=== PATIENT | female | born 1995 | race Caucasian/White ===

== ENCOUNTER 2017-11-01 15:26 | Emergency (ER) | payer OTHER ==
[2017-11-01 15:33] VITALS: BP 116/69
[2017-11-01 16:09] LABS: HCG Qualitative,Urine Negative (Negative)
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
--- NOTE | 2017-11-01 22:41 | XRay Report ---
FINAL REPORT PROCEDURE: XR SPINE CERVICAL 2-3V TECHNIQUE: Cervical spine, three views HISTORY: bilateral trapezius tenderness COMPARISON: No prior studies are available for comparison. FINDINGS: The vertebral body heights and alignment are maintained. The prevertebral soft tissues are within normal limits in thickness. The odontoid process is intact. IMPRESSION: No acute fracture or subluxation is seen
== END 2017-11-01 23:00 | disposition home or self-care (01) ==
LOC: ED 15:26
DX: M54.2 Cervicalgia (principal); M25.562 Pain in left knee; G43.909 Migraine, unspecified, not intractable, without status migrainosus; V49.09XA Driver injured in collision with other motor vehicles in nontraffic accident, initial encounter; Y93.89 Activity, other specified; Y99.8 Other external cause status; Y92.488 Other paved roadways as the place of occurrence of the external cause
CPT/HCPCS: 72040; 81025

== ENCOUNTER 2018-12-10 10:38 | Emergency (ER) | payer OTHER ==
[2018-12-10 10:46] VITALS: BP 98/59
[2018-12-10 11:44] LABS: Basophils # (Auto) 0.1 K/mm3 (0.0-0.1); Basophils % (Auto) 1.5 % (0.0-1.8); Eosinophils % (Auto) 0.6 % (0.0-4.3); Lymphocytes # (Auto) 1.7 K/mm3 (1.2-5.4); Lymphocytes % (Auto) 34.4 % (13.4-35.0); Mean Corpuscular HGB Conc 29 % (30-34); Monocytes # (Auto) 0.7 K/mm3 (0.0-0.8); Monocytes % (Auto) 13.5 % (0.0-7.3); Platelet Count 493 K/mm3 (140-440); Red Blood Count 4.63 M/mm3 (3.65-5.03)
[2018-12-10 11:47] LABS: Hematocrit 28.2 % (30.3-42.9); Hemoglobin 8.2 gm/dl (10.1-14.3); Mean Corpuscular Volume 61 fl (79-97); Red Cell Distribution Width 21.2 % (13.2-15.2)
[2018-12-10] MEDS ORDERED: REGLAN IV ONE (11:51)
[2018-12-10] MEDS ORDERED: BENADRYL IV ONE (11:51)
[2018-12-10] MEDS ORDERED: NACL 0.9% 1000 ML 1,000 ML IV ONE (11:51)
[2018-12-10] MEDS ORDERED: TORADOL IV ONE (11:51)
[2018-12-10 12:00] LABS: Alanine Aminotransferase 32 units/L (7-56); Albumin 4.3 g/dL (3.9-5); BUN/Creatinine Ratio 13; Blood Urea Nitrogen 5 mg/dL (7-17); Hemolysis Index 1
[2018-12-10 12:03] LABS: Bilirubin,Direct < 0.2 mg/dL (0-0.2)
--- NOTE | 2018-12-10 12:29 | Emergency Department Report ---
ED General Adult HPI - General Chief complaint: Extremity Injury, Lower Stated complaint: MIGRAINE/BOTH LEGS SWOLLEN Time Seen by Provider: 12/10/18 11:11 Source: patient Mode of arrival: Ambulatory Limitations: No Limitations - History of Present Illness Initial comments: This is a 23-year-old female nontoxic, well nourished in appearance, no acute signs of distress presents to the ED with c/o of acute on chronic headache. Patient also staetd has bilatearl ankle swelling. Denies any injuries. Stated has been walking a lot. Patient describes headache as diffuse with level of 3 out of 10. Patient denies thunderclap headache. Patient denies any radiation of pain. Patient denies any head trauma. Patient denies any visual changes. Patient denies worse headache. Patient stated that darkness makes headache better and bright lights make the headache worse. Patient denies any numbness, tingling, fever, chills, nausea, vomiting, chest pain, shortness of breath, stiff neck. Patient denies facial drooping or one sided weakness. Patient de nies any radiation of pain. Patient denies any allergies. Past medical history includes migraine headaches. -: days(s) (1) Radiation: non-radiation Severity scale (0 -10): 8 Quality: aching Consistency: constant Improves with: none Worsens with: none Associated Symptoms: headaches, other (bilateral ankle swelling). denies: confusion, chest pain, cough, diaphoresis, fever/chills, loss of appetite, malaise, nausea/vomiting, rash, seizure, shortness of breath, syncope, weakness - Related Data Previous Rx's Medication Instructions Recorded Last Taken Type medroxyPROGESTERone ACETATE 10 mg PO QDAY #5 tablet 02/28/14 05/15/14 Rx [Provera] Butalb/Acetamin/Caff 50-325-40 1 each PO Q4H PRN #10 tablet 05/16/14 Unknown Rx [Fioricet] Butalb/Acetaminophen/Caffeine 1 cap PO Q8HR PRN #21 cap 02/03/15 Unknown Rx [Fioricet 50-300-40 mg CAP] Ondansetron [Zofran Odt] 4 mg PO TID #6 tab.rapdis 02/03/15 Unknown Rx Cyclobenzaprine HCl [Flexeril 5 MG 5 mg PO TID PRN #15 tab 11/01/17 Unknown Rx TAB] Ibuprofen [Motrin 800 MG tab] 800 mg PO Q8HR PRN #15 tablet 11/01/17 Unknown Rx Butalb/Acetaminophen/Caffeine 1 cap PO Q8HR PRN #12 cap 12/10/18 Unknown Rx [Fioricet 50-300-40 mg CAP] Allergies Allergy/AdvReac Type Severity Reaction Status Date / Time No Known Allergies Allergy Unverified 08/26/13 11:58 ED Review of Systems ROS: Stated complaint: MIGRAINE/BOTH LEGS SWOLLEN Other details as noted in HPI Constitutional: denies: chills, fever Eyes: denies: eye pain, eye discharge, vision change ENT: denies: ear pain, throat pain Respiratory: denies: cough, shortness of breath, wheezing Cardiovascular: denies: chest pain, palpitations Endocrine: no symptoms reported Gastrointestinal: denies: abdominal pain, nausea, vomiting, diarrhea Genitourinary: denies: urgency, dysuria, discharge Musculoskeletal: denies: back pain, joint swelling, arthralgia Skin: denies: rash, lesions Neurological: headache. denies: weakness, paresthesias Psychiatric: denies: anxiety, depression Hematological/Lymphatic: denies: easy bleeding, easy bruising ED Past Medical Hx - Past Medical History Previous Medical History?: Yes Hx Headaches / Migraines: Yes - Surgical History Past Surgical History?: No - Social History Smoking Status: Never Smoker Substance Use Type: None - Medications Home Medications: Home Medications Medication Instructions Recorded Confirmed Last Taken Type medroxyPROGESTERone ACETATE 10 mg PO QDAY #5 tablet 02/28/14 05/16/14 05/15/14 Rx [Provera] Butalb/Acetamin/Caff 50-325-40 1 each PO Q4H PRN #10 tablet 05/16/14 Unknown Rx [Fioricet] Butalb/Acetaminophen/Caffeine 1 cap PO Q8HR PRN #21 cap 02/03/15 Unknown Rx [Fioricet 50-300-40 mg CAP] Ondansetron [Zofran Odt] 4 mg PO TID #6 tab.rapdis 02/03/15 Unknown Rx Cyclobenzaprine HCl [Flexeril 5 MG 5 mg PO TID PRN #15 tab 11/01/17 Unknown Rx TAB] Ibuprofen [Motrin 800 MG tab] 800 mg PO Q8HR PRN #15 tablet 11/01/17 Unknown Rx Butalb/Acetaminophen/Caffeine 1 cap PO Q8HR PRN #12 cap 12/10/18 Unknown Rx [Fioricet 50-300-40 mg CAP] ED Physical Exam - General Limitations: No Limitations General appearance: alert, in no apparent distress - Head Head exam: Present: atraumatic, normocephalic - Eye Eye exam: Present: normal appearance, PERRL, EOMI - Neck Neck exam: Present: normal inspection, full ROM. Absent: tenderness, meningismus, lymphadenopathy - Respiratory Respiratory exam: Present: normal lung sounds bilaterally. Absent: respiratory distress, wheezes, rales, rhonchi, stridor, chest wall tenderness, accessory muscle use, decreased breath sounds, prolonged expiratory - Cardiovascular Cardiovascular Exam: Present: regular rate, normal rhythm, normal heart sounds. Absent: bradycardia, tachycardia, irregular rhythm, systolic murmur, diastolic murmur, rubs, gallop - Extremities Exam Extremities exam: Present: normal inspection, full ROM, normal capillary refill. Absent: tenderness, joint swelling, calf tenderness - Expanded Lower Extremity Exam Left Hip exam: Present: normal inspection (bilateral exam), full ROM (bilateral exam). Absent: tenderness, swelling Upper Leg exam: Present: normal inspection (bilateral exam), full ROM (bilateral exam). Absent: tenderness, swelling Knee exam: Present: normal inspection (bilateral exam), full ROM (bilateral exam). Absent: tenderness, swelling Lower Leg exam: Present: normal inspection (bilateral exam), full ROM (bilateral exam). Absent: tenderness, swelling, abrasion, laceration, ecchymosis, deformity, crepidus, dislocation, erythema, palpable cord, Curt's sign Ankle exam: Present: normal inspection (bilateral exam), full ROM (bilateral exam), swelling. Absent: tenderness, abrasion, laceration, ecchymosis, deformity, crepidus, dislocation, erythema, anterior draw sign Foot/Toe exam: Present: normal inspection (bilateral exam), full ROM (bilateral exam). Absent: tenderness, swelling Neuro vascular tendon exam: Present: no vascular compromise (bilateral exam) Gait: Positive: observed and normal (bilateral exam) - Back Exam Back exam: Present: normal inspection, full ROM. Absent: tenderness, CVA tenderness (R), CVA tenderness (L), muscle spasm, paraspinal tenderness, vert ebral tenderness, rash noted - Neurological Exam Neurological exam: Present: alert, oriented X3, normal gait - Expanded Neurological Exam Expanded Patient oriented to: Present: person, place, time Cranial nerves: EOM's Intact: Normal, Facial Sensation: Normal Cerebellar function: Finger to Nose: Normal Motor strength exam: RUE: 5, LUE: 5, RLE: 5, LLE: 5 Best Eye Response ([place]): (4) open spontaneously Best Motor Response ([place]): (6) obeys commands Best Verbal Response ([place]): (5) oriented [place] Total: 15 ED Course Vital Signs 12/10/18 10:44 Temperature 97.8 F Pulse Rate 88 Respiratory 18 Rate Blood Pressure 98/59 O2 Sat by Pulse 100 Oximetry - Reevaluation(s) Reevaluation #1: 12/10/18 12:29 Patient is speaking in full sentences with no signs of distress noted. ED Medical Decision Making - Lab Data Result diagrams: 12/10/18 11:27 12/10/18 11:27 - Medical Decision Making This is a 23-year-old female that presents with headache and bilateral ankle swelling. Patient is stable and was examined by me. Patient is neurologically stable. There is no stiff neck or neck pain. Vital signs are stable. Patient is afebrile. Labs are unremarkable. Patient received Benadryl, Reglan, Toradol, and 1 L of normal saline which the patient stated that headache has subsided and resolved. Patient was instructed not to operate any machinery after discharged due to drowsiness of Benadryl. Patient stated that a family member will drive patient home. Patient is discharged with Fioricet. Patient was referred to Follow-up with a primary care/neurologist doctor in 3-5 days or if symptoms worsen and continue return to emergency room as soon as possible. At time of discharge, the patient does not seem toxic or ill in appearance. No acute signs of distress noted. Patient agrees to discharge treatment plan of care. No further questions noted by the patient. Critical care attestation.: If time is entered above; I have spent that time in minutes in the direct care of this critically ill patient, excluding procedure time. ED Disposition Clinical Impression: Swelling of both ankles Headache Qualifiers: Headache type: unspecified Headache chronicity pattern: episodic headache Intractability: not intractable Qualified Code(s): R51 - Headache Disposition: DC-01 TO HOME OR SELFCARE Is pt being admited?: No Does the pt Need Aspirin: No Condition: Stable Instructions: Acute Headache (ED), Butalbital/Aspirin/Caffeine (By mouth) Additional Instructions: Follow-up with your primary care doctor in 3-5 days or if symptoms worsen such as bladder or bowel stability, chest pain, short of breath, numbness or tingling sensation in extremities, headache, dizziness, visual changes, nausea vomiting, or abdominal pain, return back to emergency room as was possible. Elevate your feet throughout the day to decrease swelling to your ankles. Prescriptions: Butalb/Acetaminophen/Caffeine [Fioricet 50-300-40 mg CAP] 1 cap PO Q8HR PRN #12 cap PRN Reason: Headache Referrals: PRIMARY CARE, [Referring] - 3-5 Days MARIE MUELLER MD [Staff Physician] - 3-5 Days [facility] [Outside] - 3-5 Days [facility] [Outside] - 3-5 Days Forms: Work/School Release Form(ED)
[2018-12-10 12:59] LABS: Bilirubin,Urine NEG (Negative); Blood,Urine NEG (Negative); Color,Urine Straw (Yellow); Mucus,Urine FEW /HPF; Protein,Urine <15 mg/dL mg/dL (Negative); Urobilinogen,Urine < 2.0 mg/dL (<2.0); WBC,Urine < 1.0 /HPF (0.0-6.0)
== END 2018-12-10 14:19 | disposition home or self-care (01) ==
LOC: ED 10:38
DX: G43.909 Migraine, unspecified, not intractable, without status migrainosus (principal); R22.43 Localized swelling, mass and lump, lower limb, bilateral; Z79.899 Other long term (current) drug therapy
CPT/HCPCS: 36415; 80048; 80076; 81001; 83880; 84703; 85025; 96374; 96375; 99283; J1200; J1885; J2765; J7030

== ENCOUNTER 2019-04-02 15:56 | Emergency (ER) | payer SELFPAY ==
--- NOTE | 2019-04-02 16:53 | Event Note ---
ED Screening Note ED Screening Note: stats she has a migraine states she has HAs frequently states she has a frontal SCHWARZ pt states she also has had vaginal bleeding for three weeks states she usually has heavy cycles states she has it regularly where she has her cycle for extended periods states she has been evaluated previously and had a normal US states was previously on control to help with her bleeding, is not on it anymore because she didnot have a "refill" no PMHx no allergies to meds This initial assessment/diagnostic orders/clinical plan/treatment(s) is/are subject to change based on patients health status, clinical progression and re- assessment by fellow clinical providers in the ED. Further treatment and workup at subsequent clinical providers discretion. Patient/guardian urged not to elope from the ED as their condition may be serious if not clinically assessed and managed. Initial orders include: labs
[2019-04-02 17:55] LABS: Basophils # (Auto) 0.1 K/mm3 (0.0-0.1); Basophils % (Auto) 0.8 % (0.0-1.8); Eosinophils % (Auto) 0.2 % (0.0-4.3); Lymphocytes # (Auto) 2.6 K/mm3 (1.2-5.4); Lymphocytes % (Auto) 34.1 % (13.4-35.0); Mean Corpuscular HGB Conc 28 % (30-34); Monocytes # (Auto) 0.8 K/mm3 (0.0-0.8); Monocytes % (Auto) 10.1 % (0.0-7.3); Platelet Count 670 K/mm3 (140-440); Red Blood Count 3.79 M/mm3 (3.65-5.03)
[2019-04-02 17:59] LABS: Hematocrit 22.4 % (30.3-42.9); Hemoglobin 6.4 gm/dl (10.1-14.3); Mean Corpuscular Volume 59 fl (79-97); Red Cell Distribution Width 24.5 % (13.2-15.2)
[2019-04-02 18:11] LABS: BUN/Creatinine Ratio 15; Blood Urea Nitrogen 6 mg/dL (7-17); Hemolysis Index 4
[2019-04-02] MEDS ORDERED: diphenhydrAMINE 25 MG CAP PO ONE (19:55)
[2019-04-02] MEDS ORDERED: SODIUM CHLORIDE 0.9% 1000 ML 1,000 ML IV ONE (19:55)
[2019-04-02] MEDS ORDERED: ACETAMINOPHEN 500 MG TAB PO ONE (19:55)
[2019-04-02] MEDS ORDERED: METOCLOPRAMIDE 10 MG TAB PO ONE (19:55)
[2019-04-02 20:46] LABS: INR 0.98 (0.87-1.13)
[2019-04-02 20:47] LABS: Partial Thromboplastin Time 25.5 Sec. (24.2-36.6)
--- NOTE | 2019-04-02 21:02 | Ultrasound Report ---
ULTRASOUND PELVIS INDICATION: Vaginal bleeding. TECHNIQUE: Transabdominal. Duplex Color Doppler used: Yes. COMPARISON: Pelvic ultrasound from 11/02/2013. FINDINGS: Uterus: Present. Size: 6.7 x 3.4 x 3.4 cm. Endometrial complex: Thickened measuring 1.35 cm. Mass lesions: None. Additional findings: None. Right Ovary: Size: 3.7 x 2.1 x 1.7 cm Blood flow: Normal. Cyst or mass: None. Left Ovary: Size: 4.0 x 2.2 x 2.3 cm Blood flow: Normal. Cyst or mass: None. Urinary Bladder: Normal. Free Fluid: None. Additional Findings: None. IMPRESSION: Nonspecific endometrial thickening without an additional significant sonographic abnormality of the p crystal. Signer Name: Severino Meléndez MD Signed: 04/02/2019 8:58 PM Workstation Name: [id number]
[2019-04-02 22:46] VITALS: BP 111/76
--- NOTE | 2019-04-02 22:48 | Emergency Department Report ---
ED General Adult HPI - General Chief complaint: Headache Stated complaint: HEADACHE/MIGRANE Time Seen by Provider: 04/02/19 16:50 Source: patient Mode of arrival: Ambulatory Limitations: No Limitations - History of Present Illness Initial comments: Ms. Melo is a 23 y/o aaf who presents for prolonged vaginal bleeding and headache, pt state hx of anemia, and aub, however she is not taking bc pills, or fe as she has been out of medication for past year. Current symptoms include intermittent headche and vaginal bleeding for past month using 6 pads daily. pt rates symptoms at 3/10 at this time. Onset/Timin -: month(s) Severity scale (0 -10): 5 Quality: aching Consistency: constant Improves with: none Worsens with: movement Associated Symptoms: headaches. denies: fever/chills, nausea/vomiting, shortness of breath Treatments Prior to Arrival: none - Related Data Previous Rx's Medication Instructions Recorded Last Taken Type medroxyPROGESTERone ACETATE 10 mg PO QDAY #5 tablet 02/28/14 05/15/14 Rx [Provera] Butalb/Acetamin/Caff 50-325-40 1 each PO Q4H PRN #10 tablet 05/16/14 Unknown Rx [Fioricet] Butalb/Acetaminophen/Caffeine 1 cap PO Q8HR PRN #21 cap 02/03/15 Unknown Rx [Fioricet 50-300-40 mg CAP] Ondansetron [Zofran Odt] 4 mg PO TID #6 tab.rapdis 02/03/15 Unknown Rx Cyclobenzaprine HCl [Flexeril 5 MG 5 mg PO TID PRN #15 tab 11/01/17 Unknown Rx TAB] Ibuprofen [Motrin 800 MG tab] 800 mg PO Q8HR PRN #15 tablet 11/01/17 Unknown Rx Butalb/Acetaminophen/Caffeine 1 cap PO Q8HR PRN #12 cap 12/10/18 Unknown Rx [Fioricet 50-300-40 mg CAP] Ferrous Sulfate [Ferrous Sulfate 324 mg PO TID #90 tablet. 04/02/19 Unknown Rx 324 MG] Ibuprofen [Motrin 800 MG tab] 800 mg PO Q8HR PRN #30 tablet 04/02/19 Unknown Rx Sennosides [Senna] 8.6 mg PO BID #60 capsule 04/02/19 Unknown Rx medroxyPROGESTERone ACETATE 10 mg PO QDAY 10 Days #10 tablet 04/02/19 Unknown Rx [Provera] Allergies Allergy/AdvReac Type Severity Reaction Status Date / Time No Known Allergies Allergy Verified 04/02/19 15:59 ED Review of Systems ROS: Stated complaint: HEADACHE/MIGRANE Other details as noted in HPI Constitutional: denies: chills, fever Eyes: denies: eye pain, eye discharge, vision change ENT: denies: ear pain, throat pain Respiratory: denies: cough, shortness of breath, wheezing Cardiovascular: denies: chest pain, palpitations Endocrine: no symptoms reported Gastrointestinal: abdominal pain (cramping ) Genitourinary: denies: urgency, dysuria, frequency, hematuria, discharge Musculoskeletal: denies: back pain, joint swelling, arthralgia Skin: denies: rash, lesions Neurological: denies: headache, weakness, paresthesias Psychiatric: denies: anxiety, depression Hematological/Lymphatic: denies: easy bleeding, easy bruising ED Past Medical Hx - Past Medical History Hx Headaches / Migraines: Yes - Social History Smoking Status: Never Smoker Substance Use Type: None - Medications Home Medications: Home Medications Medication Instructions Recorded Confirmed Last Taken Type medroxyPROGESTERone ACETATE 10 mg PO QDAY #5 tablet 02/28/14 05/16/14 05/15/14 Rx [Provera] Butalb/Acetamin/Caff 50-325-40 1 each PO Q4H PRN #10 tablet 05/16/14 Unknown Rx [Fioricet] Butalb/Acetaminophen/Caffeine 1 cap PO Q8HR PRN #21 cap 02/03/15 Unknown Rx [Fioricet 50-300-40 mg CAP] Ondansetron [Zofran Odt] 4 mg PO TID #6 tab.rapdis 02/03/15 Unknown Rx Cyclobenzaprine HCl [Flexeril 5 MG 5 mg PO TID PRN #15 tab 11/01/17 Unknown Rx TAB] Ibuprofen [Motrin 800 MG tab] 800 mg PO Q8HR PRN #15 tablet 11/01/17 Unknown Rx Butalb/Acetaminophen/Caffeine 1 cap PO Q8HR PRN #12 cap 12/10/18 Unknown Rx [Fioricet 50-300-40 mg CAP] Ferrous Sulfate [Ferrous Sulfate 324 mg PO TID #90 tablet.dr 04/02/19 Unknown Rx 324 MG] Ibuprofen [Motrin 800 MG tab] 800 mg PO Q8HR PRN #30 tablet 04/02/19 Unknown Rx Sennosides [Senna] 8.6 mg PO BID #60 capsule 04/02/19 Unknown Rx medroxyPROGESTERone ACETATE 10 mg PO QDAY 10 Days #10 tablet 04/02/19 Unknown Rx [Provera] ED Physical Exam - General Limitations: No Limitations General appearance: alert, in no apparent distress - Head Head exam: Present: atraumatic, normocephalic - Eye Eye exam: Present: normal appearance, PERRL, EOMI Pupils: Present: normal accommodation - ENT ENT exam: Present: mucous membranes moist - Neck Neck exam: Present: normal inspection - Respiratory Respiratory exam: Present: normal lung sounds bilaterally. Absent: respiratory distress - Cardiovascular Cardiovascular Exam: Present: regular rate, normal rhythm. Absent: systolic murmur, diastolic murmur, rubs, gallop - GI/Abdominal GI/Abdominal exam: Present: soft, distended, tenderness, normal bowel sounds, bruit, hernia. Absent: guarding, rebound, rigid - Rectal Rectal exam: Present: deferred - External exam: Present: other (declined ) - Extremities Exam Extremities exam: Present: normal inspection, full ROM, normal capillary refill. Absent: tenderness, pedal edema, joint swelling, calf tenderness - Back Exam Back exam: Present: normal inspection, full ROM. Absent: tenderness, CVA tenderness (R), CVA tenderness (L), vertebral tenderness, rash noted - Neurological Exam Neurological exam: Present: alert, oriented X3, CN II-XII intact, normal gait, reflexes normal. Absent: motor sensory deficit - Expanded Neurological Exam Expanded Patient oriented to: Present: person, place, time Speech: Present: fluid speech Cranial nerves: EOM's Intact: Normal, Gag Reflex: Normal, Tongue Deviation: Normal, Nystagmus: Normal, Facial Sensation: Normal Motor strength exam: RUE: 5, LUE: 5, RLE: 5, LLE: 5 Best Eye Response (Janna): (4) open spontaneously Best Motor Response (Janna): (6) obeys commands Best Verbal Response (Mabel): (5) oriented Janna Total: 15 - Psychiatric Psychiatric exam: Present: normal affect, normal mood - Skin Skin exam: Present: warm, dry, intact, normal color. Absent: rash ED Course Vital Signs 04/02/19 04/02/19 04/02/19 16:15 20:01 22:14 Temperature 98.2 F 98.7 F Pulse Rate 105 H 104 H Respiratory 24 16 15 Rate Blood Pressure 111/76 Blood Pressure 119/70 [Right] O2 Sat by Pulse 100 100 Oximetry ED Medical Decision Making - Lab Data Result diagrams: 04/02/19 16:59 04/02/19 17:04 Labs 04/02/19 04/02/19 04/02/19 16:59 17:04 17:05 WBC 7.7 RBC 3.79 Hgb 6.4 L Hct 22.4 L MCV 59 L MCH 17 L MCHC 28 L RDW 24.5 H Plt Count 670 H Lymph % (Auto) 34.1 Newton % (Auto) 10.1 H Eos % (Auto) 0.2 Baso % (Auto) 0.8 Lymph # 2.6 Newton # 0.8 Eos # 0.0 Baso # 0.1 Seg Neutrophils % 54.8 Seg Neutrophils # 4.2 PT INR APTT Sodium 138 Potassium 3.7 Chloride 102.0 Carbon Dioxide 20 L Anion Gap 20 BUN 6 L Creatinine 0.4 L Estimated GFR > 60 BUN/Creatinine Ratio 15 Glucose 86 Calcium 9.0 HCG, Quant < 2 Blood Type Antibody Screen 04/02/19 04/02/19 20:10 20:12 WBC RBC Hgb Hct MCV MCH MCHC RDW Plt Count Lymph % (Auto) Newton % (Auto) Eos % (Auto) Baso % (Auto) Lymph # Newton # Eos # Baso # Seg Neutrophils % Seg Neutrophils # PT 12.9 INR 0.98 APTT 25.5 Sodium Potassium Chloride Carbon Dioxide Anion Gap BUN Creatinine Estimated GFR BUN/Creatinine Ratio Glucose Calcium HCG, Quant Blood Type B POSITIVE Antibody Screen Negative - Radiology Data Radiology results: report reviewed, image reviewed Findings [facility] [address] [place] [address] Ultrasound Report Signed Patient: CLARA MELO MR#: [id number] : 1995 Acct:[id number] Age/Sex: 23 / F ADM Date: 04/02/19 Loc: ED Attending Dr: Ordering Physician: SYED HUYNH NP Date of Service: 04/02/19 Procedure(s): US pelvic complete Accession Number(s): [id number] cc: SYED HUYNH NP ULTRASOUND PELVIS INDICATION: Vaginal bleeding. TECHNIQUE: Transabdominal. Duplex Color Doppler used: Yes. COMPARISON: Pelvic ultrasound from 11/02/2013. FINDINGS: Uterus: Present. Size: 6.7 x 3.4 x 3.4 cm. Endometrial complex: Thickened measuring 1.35 cm. Mass lesions: None. Additional findings: None. Right Ovary: Size: 3.7 x 2.1 x 1.7 cm Blood flow: Normal. Cyst or mass: None. Left Ovary: Size: 4.0 x 2.2 x 2.3 cm Blood flow: Normal. Cyst or mass: None. Urinary Bladder: Normal. Free Fluid: None. Additional Findings: None. IMPRESSION: Nonspecific endometrial thickening without an additional significant sonographic abnormality of the pelvis. Signer Name: Severino Meléndez MD Signed: 04/02/2019 8:58 PM Workstation Name: [id number] Transcribed By: MN Dictated By: Severino Meléndez MD Electronically Authenticated By: Severino Meléndez MD Signed Date/Time: 04/02/192057 DD/ 52 TD/TT: - Medical Decision Making US normal, H/H: 6.4/22.4, pt declines blood transfusion, this is a chronic problem, there is no infectious source noted at this, time , pt is a.o x 3 ambulatory with steady gait, no dizziness no light headedness no n/v plan: Provera, Ferrous sulfate, senna, ibuprofen. pt dc' d to home in stable conditio n. Critical care attestation.: If time is entered above; I have spent that time in minutes in the direct care of this critically ill patient, excluding procedure time. ED Disposition Clinical Impression: Anemia of chronic disease, Abnormal uterine bleeding (AUB) Disposition: DC-01 TO HOME OR SELFCARE Is pt being admited?: No Does the pt Need Aspirin: No Condition: Stable Instructions: Anemia (ED) Prescriptions: Ferrous Sulfate [Ferrous Sulfate 324 MG] 324 mg PO TID #90 tablet. Ibuprofen [Motrin 800 MG tab] 800 mg PO Q8HR PRN #30 tablet PRN Reason: pain medroxyPROGESTERone ACETATE [Provera] 10 mg PO QDAY 10 Days #10 tablet Sennosides [Senna] 8.6 mg PO BID #60 capsule Referrals: GREGORIA GARLAND MD [Staff Physician] - 3-5 Days Forms: Work/School Release Form(ED) Time of Disposition: 23:44
== END 2019-04-02 22:56 | disposition home or self-care (01) ==
LOC: ED 15:56
DX: D63.8 Anemia in other chronic diseases classified elsewhere (principal); G43.909 Migraine, unspecified, not intractable, without status migrainosus
CPT/HCPCS: 36415; 76856; 80048; 84702; 85025; 85610; 85730; 86850; 86900; 86901; J7030

== ENCOUNTER 2019-04-20 21:23 | Emergency (ER) | payer SELFPAY ==
[2019-04-20 22:47] VITALS: BP 113/65
[2019-04-20 23:37] LABS: Hematocrit 33.3 % (30.3-42.9); Hemoglobin 10.1 gm/dl (10.1-14.3); Mean Corpuscular HGB Conc 30 % (30-34); Mean Corpuscular Volume 74 fl (79-97); Platelet Count 182 K/mm3 (140-440)
[2019-04-20 23:49] LABS: Red Cell Distribution Width > 15.2 % (13.2-15.2)
[2019-04-21 00:08] LABS: Bacteria,Urine 3+ /HPF (Negative); Bilirubin,Urine NEG (Negative); Blood,Urine LG (Negative); Color,Urine Red (Yellow)
[2019-04-21 00:09] LABS: RBC,Urine > 182.0 /HPF (0.0-6.0); WBC,Urine > 182.0 /HPF (0.0-6.0)
--- NOTE | 2019-04-21 00:22 | Emergency Department Report ---
Chief Complaint: Vaginal Bleeding Stated Complaint: VAG BLEEDING; ABD PAIN Time Seen by Provider: 04/21/19 00:05 - HPI History of Present Illness: 23-year-old female presents to the emergency room complaining of vaginal bleeding started 1 week ago. Patient states she was seen 2 weeks ago for the same and was prescribed control. Patient states that she stopped bleeding for 1 week and then started back. Patient comes in today requesting control. Patient was referred to [facility] she reports that she called and next appointment is May 24. She denies any dizziness shortness of breath or chest pain. - Exam Vital Signs: Vital Signs 04/20/19 21:43 Temperature 98.4 F Pulse Rate 103 H Respiratory 14 Rate Blood Pressure 113/65 O2 Sat by Pulse 100 Oximetry Physical Exam: Gen: alert oriented NAD Cardic: regular rate and rhythm no murmurs appreciated Resp: Clear to auscultation bilateral no wheezing no rales or rhonchi. Abdomen: Soft nontender nondistended normal bowel sounds. Mini neuro: , strengh 4/5 all extrimities, Alert and oriented time 3 MSE screening note: Focused history and physical exam performed. Due to findings the following was ordered: CBC is normal no evidence of acute anemia. Patient had ultrasound on 04/02/2019. Only shows thickening of the uterus wall. Patient is to follow-up with an [facility] provider. ED Medical Decision Making - Lab Data Result diagrams: 04/20/19 23:00 ED Disposition for MSE Clinical Impression: Abnormal uterine bleeding (AUB) Disposition: Z-07 MED SCREENING EXAM-LEFT Is pt being admited?: No Does the pt Need Aspirin: No Condition: Stable Referrals: NASIR LARA MD [Primary Care Provider] - 3-5 Days [facility] [Provider Group] - 3-5 Days [facility] [Provider Group] - 3-[address] [facility] [Provider Group] - 3-5 Days
[2019-04-21 02:09] LABS: Total Cells Counted 100
[2019-04-21 02:10] LABS: Anisocytosis 2+; Macrocytosis 1+; Poikilocytosis 1+
[2019-04-21 02:11] LABS: Hypochromasia Few; Platelet Estimate Consistent w Auto; Tear Drop Cells Rare
== END 2019-04-21 00:51 | disposition left against medical advice (07) ==
LOC: ED 21:23
DX: N93.9 Abnormal uterine and vaginal bleeding, unspecified (principal)
CPT/HCPCS: 36415; 81001; 84703; 85007; 85025; 86900; 86901

== ENCOUNTER 2019-10-09 12:21 | Emergency (ER) | payer SELFPAY ==
[2019-10-09 12:27] VITALS: BP 129/77
[2019-10-09 12:46] LABS: Bilirubin,Urine NEG (Negative); Blood,Urine SM (Negative); Color,Urine Straw (Yellow); Mucus,Urine FEW /HPF; Protein,Urine <15 mg/dL mg/dL (Negative); Urobilinogen,Urine < 2.0 mg/dL (<2.0); WBC,Urine < 1.0 /HPF (0.0-6.0)
[2019-10-09 12:55] LABS: Basophils % (Auto) 0.5 % (0.0-1.8); Eosinophils % (Auto) 0.3 % (0.0-4.3); Lymphocytes % (Auto) 22.6 % (13.4-35.0); Monocytes % (Auto) 10.5 % (0.0-7.3)
[2019-10-09] MEDS ORDERED: MORPHINE 4 MG/1 ML INJ IV ONE (13:01)
[2019-10-09] MEDS ORDERED: ONDANSETRON 4 MG/2 ML INJ IV ONE (13:01)
[2019-10-09] MEDS ORDERED: SODIUM CHLORIDE 0.9% 1000 ML 1,000 ML IV ONE (13:01)
[2019-10-09 13:03] LABS: Hematocrit 39.9 % (30.3-42.9); Hemoglobin 12.6 gm/dl (10.1-14.3); Lymphocytes # (Auto) 2.2 K/mm3 (1.2-5.4); Mean Corpuscular HGB Conc 32 % (30-34); Mean Corpuscular Volume 75 fl (79-97); Platelet Count 282 K/mm3 (140-440); Red Blood Count 5.35 M/mm3 (3.65-5.03); Red Cell Distribution Width 18.6 % (13.2-15.2)
[2019-10-09 13:16] LABS: Alanine Aminotransferase 23 units/L (7-56); Albumin 4.4 g/dL (3.9-5); BUN/Creatinine Ratio 20; Blood Urea Nitrogen 8 mg/dL (7-17); Hemolysis Index 1
--- NOTE | 2019-10-09 13:58 | Cat Scan Report ---
CT ABDOMEN AND PELVIS WITH CONTRAST HISTORY: lower mid abd pain COMPARISON: None. TECHNIQUE: Axial CT images were obtained through the abdomen and pelvis after 100 cc of Omnipaque 300 intravenously. Sagittal and coronal reformatted images. All CT scans at this location are performed using CT dose reduction for ALARA by means of automated exposure control. FINDINGS: CT ABDOMEN: Lung Bases: Clear. Liver: No significant abnormality. Biliary: No significant abnormality. Spleen: No significant abnormality. Unenlarged. Pancreas: No significant abnormality. Adrenals: No significant abnormality. Kidneys: No significant abnormality. Lymphatics: No lymphadenopathy. Vasculature: No significant abnormality. Bowel/Peritoneum: I question if there is mild circumferential thickening of the mid and distal small bowel loops in the lower abdomen. A mild nonspecific enteritis could be considered. There is no evide nce for obstruction, focal mass or advanced inflammatory changes. The appendix is unremarkable. Trace pelvic fluid is identified. No free air or abscess. CT PELVIS: : No significant abnormality. Osseous Structures: No significant abnormality. Additional Findings: Small umbilical hernia containing fat is identified. IMPRESSION: Question a mild enteritis as outlined above. Otherwise, unremarkable exam. Signer Name: Gustabo Thompson Jr, MD Signed: 10/09/2019 1:53 PM Workstation Name: [id number]
--- NOTE | 2019-10-09 14:23 | Emergency Department Report ---
ED Abdominal Pain HPI - General Chief Complaint: Abdominal Pain Stated Complaint: STOMACH PAIN Time Seen by Provider: 10/09/19 12:59 Source: patient Mode of arrival: Ambulatory Limitations: No Limitations - History of Present Illness Initial Comments: This is a 24-year-old female nontoxic, well nourished in appearance, no acute signs of distress presents to the ED with c/o of nausea and vomiting and abdominal pain 1 day. Patient describes vomiting as food content and yellow gastric acid. Patient describes abdominal pain as cramping and aching with level of 3/10 diffuse. Patient denies chest pain, short of breath, fever, hemoptysis, blood in stool, chills, headache, stiff neck, numbness or tingling. Patient denies any diarrhea or constipation. Denies any blood in stool. Patient denies any recent travels. Patient denies any allergies or significant PMH. MD Complaint: abdominal pain -: days(s) Location: diffuse Radiation: none Migration to: no migration Severity: mild Severity scale (0 -10): 8 Quality: cramping, aching Consistency: constant Improves With: nothing Worsens With: nothing Associated Symptoms: nausea, vomiting. denies: diarrhea, fever, chills, constipation, dysuria, hematemesis, hematochezia, melena, hematuria, anorexia, syncope - Related Data Previous Rx's Medication Instructions Recorded Last Taken Type medroxyPROGESTERone ACETATE 10 mg PO QDAY #5 tablet 02/28/14 05/15/14 Rx [Provera] Butalb/Acetamin/Caff 50-325-40 1 each PO Q4H PRN #10 tablet 05/16/14 Unknown Rx [Fioricet] Butalb/Acetaminophen/Caffeine 1 cap PO Q8HR PRN #21 cap 02/03/15 Unknown Rx [Fioricet 50-300-40 mg CAP] Ondansetron [Zofran Odt] 4 mg PO TID #6 tab.rapdis 02/03/15 Unknown Rx Cyclobenzaprine HCl [Flexeril 5 MG 5 mg PO TID PRN #15 tab 11/01/17 Unknown Rx TAB] Ibuprofen [Motrin 800 MG tab] 800 mg PO Q8HR PRN #15 tablet 11/01/17 Unknown Rx Butalb/Acetaminophen/Caffeine 1 cap PO Q8HR PRN #12 cap 12/10/18 Unknown Rx [Fioricet 50-300-40 mg CAP] Ferrous Sulfate [Ferrous Sulfate 324 mg PO TID #90 tablet.dr 04/02/19 Unknown Rx 324 MG] Ibuprofen [Motrin 800 MG tab] 800 mg PO Q8HR PRN #30 tablet 04/02/19 Unknown Rx Sennosides [Senna] 8.6 mg PO BID #60 capsule 04/02/19 Unknown Rx medroxyPROGESTERone ACETATE 10 mg PO QDAY 10 Days #10 tablet 04/02/19 Unknown Rx [Provera] Ondansetron [Zofran Odt] 4 mg PO Q8HR PRN #12 tab.rapdis 10/09/19 Unknown Rx Allergies Allergy/AdvReac Type Severity Reaction Status Date / Time No Known Allergies Allergy Verified 10/09/19 12:27 ED Review of Systems ROS: Stated complaint: STOMACH PAIN Other details as noted in HPI Constitutional: denies: chills, fever Eyes: denies: eye pain, eye discharge, vision change ENT: denies: ear pain, throat pain Respiratory: denies: cough, shortness of breath, wheezing Cardiovascular: denies: chest pain, palpitations Endocrine: no symptoms reported Gastrointestinal: abdominal pain, nausea, vomiting. denies: diarrhea Genitourinary: denies: urgency, dysuria, discharge Musculoskeletal: denies: back pain, joint swelling, arthralgia Skin: denies: rash, lesions Neurological: denies: headache, weakness, paresthesias Psychiatric: denies: anxiety, depression Hematological/Lymphatic: denies: easy bleeding, easy bruising ED Past Medical Hx - Past Medical History Previous Medical History?: Yes Hx Headaches / Migraines: Yes - Surgical History Past Surgical History?: No - Social History Smoking Status: Never Smoker Substance Use Type: None - Medications Home Medications: Home Medications Medication Instructions Recorded Confirmed Last Taken Type medroxyPROGESTERone ACETATE 10 mg PO QDAY #5 tablet 02/28/14 05/16/14 05/15/14 Rx [Provera] Butalb/Acetamin/Caff 50-325-40 1 each PO Q4H PRN #10 tablet 05/16/14 Unknown Rx [Fioricet] Butalb/Acetaminophen/Caffeine 1 cap PO Q8HR PRN #21 cap 02/03/15 Unknown Rx [Fioricet 50-300-40 mg CAP] Ondansetron [Zofran Odt] 4 mg PO TID #6 tab.rapdis 02/03/15 Unknown Rx Cyclobenzaprine HCl [Flexeril 5 MG 5 mg PO TID PRN #15 tab 11/01/17 Unknown Rx TAB] Ibuprofen [Motrin 800 MG tab] 800 mg PO Q8HR PRN #15 tablet 11/01/17 Unknown Rx Butalb/Acetaminophen/Caffeine 1 cap PO Q8HR PRN #12 cap 12/10/18 Unknown Rx [Fioricet 50-300-40 mg CAP] Ferrous Sulfate [Ferrous Sulfate 324 mg PO TID #90 tablet.dr 04/02/19 Unknown Rx 324 MG] Ibuprofen [Motrin 800 MG tab] 800 mg PO Q8HR PRN #30 tablet 04/02/19 Unknown Rx Sennosides [Senna] 8.6 mg PO BID #60 capsule 04/02/19 Unknown Rx medroxyPROGESTERone ACETATE 10 mg PO QDAY 10 Days #10 tablet 04/02/19 Unknown Rx [Provera] Ondansetron [Zofran Odt] 4 mg PO Q8HR PRN #12 tab.rapdis 10/09/19 Unknown Rx ED Physical Exam - General Limitations: No Limitations General appearance: alert, in no apparent distress - Head Head exam: Present: atraumatic, normocephalic - Eye Eye exam: Present: normal appearance - Neck Neck exam: Present: normal inspection, full ROM. Absent: tenderness, meningismus, lymphadenopathy - Respiratory Respiratory exam: Present: normal lung sounds bilaterally. Absent: respiratory distress, wheezes, rales, rhonchi, stridor, chest wall tenderness, accessory muscle use, decreased breath sounds, prolonged expiratory - Cardiovascular Cardiovascular Exam: Present: regular rate, normal rhythm, normal heart sounds. Absent: irregular rhythm, systolic murmur, diastolic murmur, rubs, gallop - GI/Abdominal GI/Abdominal exam: Present: soft, tenderness (diffuse), normal bowel sounds. Absent: distended, guarding, rebound, rigid, diminished bowel sounds - Extremities Exam Extremities exam: Present: normal inspection, full ROM - Back Exam Back exam: Present: normal inspection, full ROM - Neurological Exam Neurological exam: Present: alert, oriented X3, normal gait - Psychiatric Psychiatric exam: Present: normal affect, normal mood - Skin Skin exam: Present: warm, dry, intact, normal color. Absent: rash ED Course Vital Signs 10/09/19 10/09/19 12:26 13:28 Temperature 97.6 F Pulse Rate 104 H Respiratory 18 22 Rate Blood Pressure 129/77 O2 Sat by Pulse 100 Oximetry - Reevaluation(s) Reevaluation #1: 10/09/19 14:21 Patient is speaking in full sentences with no signs of distress noted. ED Medical Decision Making - Lab Data Result diagrams: 10/09/19 12:39 10/09/19 12:39 - Medical Decision Making This is a 24-year-old female that presents with abdominal pain. Patient is stable and was examined by me. There is no abdominal tenderness. Negative signs of symptoms of appendicitis. Labs obtained. UA obtained. CT of abdomen obtained and dictated by the radiologist. Patient is notified of the report with no questions noted by the patient. Vital signs are stable prior to discharge. Patient received medical treatment in the ED which patient stated symptoms has resovled and subsided. Was instructed note to operate any machinery due to possible drowsiness and stated someone will drive the patient home. A by mouth challenge has been obtained and patient tolerated well with no nausea vomiting. Patient was notified of strict precatuions of appendictis symptoms and to return to the ED if symptoms occurs as soon as possible. Patient was also instructed to Follow-up with a primary care doctor in 3-5 days or if symptoms worsen and continue return to emergency room as soon as possible. At time of discharge, the patient does not seem toxic or ill in appearance. No acute signs of di stress noted. Patient agrees to discharge treatment plan of care. No further questions noted by the patient. Critical care attestation.: If time is entered above; I have spent that time in minutes in the direct care of this critically ill patient, excluding procedure time. ED Disposition Clinical Impression: Abdominal pain Qualifiers: Abdominal location: generalized Qualified Code(s): R10.84 - Generalized abdominal pain Nausea & vomiting Qualifiers: Vomiting type: unspecified Vomiting Intractability: non-intractable Qualified Code(s): R11.2 - Nausea with vomiting, unspecified Disposition: DC-01 TO HOME OR SELFCARE Is pt being admited?: No Does the pt Need Aspirin: No Condition: Stable Instructions: Abdominal Pain (ED) Additional Instructions: Follow-up with a primary care doctor in 3-5 days or if symptoms worsen and continue return to emergency room as soon as possible. Prescriptions: Ondansetron [Zofran Odt] 4 mg PO Q8HR PRN #12 tab.rapdis PRN Reason: Nausea Referrals: PRIMARY CAREMD [Primary Care Provider] - 3-5 Days TRACE NAAV MD [Staff Physician] - 3-5 Days [facility] [Provider Group] - 3-5 Days Forms: Work/School Release Form(ED)
== END 2019-10-09 15:19 | disposition home or self-care (01) ==
LOC: ED 12:21
DX: R11.2 Nausea with vomiting, unspecified (principal); R10.84 Generalized abdominal pain; G43.909 Migraine, unspecified, not intractable, without status migrainosus; Z79.899 Other long term (current) drug therapy
CPT/HCPCS: 36415; 74177; 80053; 81001; 83690; 84703; 85025; 96361; 96374; 96375; 99284; J2270; J2405; J7030; Q9967